=== PATIENT | male | born 1985 | race Two or more races ===

== ENCOUNTER 2021-04-10 19:49 | Inpatient (IN) | payer SELFPAY ==
[~2021-04-10] VITALS: Ht 182.9 cm; Wt 108.1 kg
[2021-04-10] MEDS ORDERED: FAMOTIDINE 20 MG/2 ML VIAL IVP ONE (20:45)
[2021-04-10] MEDS ORDERED: IV NORMAL SALINE 1000ML BAG 1,000 ML IV ONE ×2 (20:45→22:00)
[2021-04-10] MEDS ORDERED: METOCLOPRAMIDE HCL 10 MG/2 ML VIAL. IVP ONE (20:45)
[2021-04-10 20:47] LABS: CALCIUM 9.1 mg/dL (8.5-10.1); CREATININE 1.1 mg/dL (0.7-1.3); GFR 76.2
[2021-04-10 20:52] LABS: BASO % 0 % (0-3); EOS # 0.1 x10^3/uL (0.0-0.7); EOS % 1 % (0-3); HEMATOCRIT 44.3 % (39.0-53.0); HEMOGLOBIN 15.6 g/dL (13.0-17.5); LYMPH # 1.6 x10^3/uL (1.0-4.8); LYMPH % 21 % (24-48); MEAN CORPUSCULAR HEMOGLOBIN 33 pg (25-35); MEAN CORPUSCULAR HGB CONC 35 g/dL (31-37); MEAN CORPUSCULAR VOLUME 94 fL (79-100); MONO # 0.5 x10^3/uL (0.0-1.1); MONO % 6 % (0-9); NEUT # 5.5 x10^3/uL (1.8-7.7); NEUT % 71 % (31-73); PLATELET COUNT 187 x10^3/uL (140-400); RED CELL DISTRIBUTION WIDTH 13.6 % (11.5-14.5); WHITE BLOOD COUNT 7.7 x10^3/uL (4.0-11.0)
[2021-04-10 20:53] LABS: ALBUMIN 4.4 g/dL (3.4-5.0); ALBUMIN/GLOBULIN RATIO 1.4 (1.0-1.7); TOTAL BILIRUBIN 0.4 mg/dL (0.2-1.0); TOTAL PROTEIN 7.6 g/dL (6.4-8.2)
[2021-04-10 21:01] LABS: CREATINE KINASE 238 U/L (39-308); LACTATE DEHYDROGENASE 223 U/L (85-227); LIPASE 58 U/L (73-393)
--- NOTE | 2021-04-10 21:04 | RAD ---
EXAM: AP View of the chest DATE: 04/10/2021 8:54 PM INDICATION: Reason: n/v / Spl. Instructions: / History: COMPARISON: No Prior FINDINGS: The heart is not enlarged. Mediastinal and hilar contours are normal. Patchy opacities right lung base likely atelectasis or developing consolidation. No pleural effusion or pneumothorax. IMPRESSION: Patchy opacities right lung base favor developing consolidation although atelectasis could also have this appearance. Imaging follow-up to resolution is recommended. Electronically signed by: Fermin Arriola MD (04/10/2021 9:02 PM) [facility]
[2021-04-10] MEDS ORDERED: IOHEXOL 300 MG/ML 100ML VIAL. IV ONE (21:15)
[2021-04-10] MEDS ORDERED: CONTRAST GIVEN. MC PRN (21:15)
--- NOTE | 2021-04-10 21:31 | EKG ---
[facility] [address] [place] [address] Test Date: 2021-04-10 Test Time: 21:24:27 Pat Name: KALEIGH RENO Department: Room: Gender: M Clinical Product Manager: : 1985 Requested By: WILD WANG Order Number: [id number] Reading MD: Measurements Intervals [place] Rate: 75 P: 27 NE: 150 QRS: 36 QRSD: 82 T: 14 QT: 352 QTc: 396 Interpretive Statements SINUS ARRHYTHMIA OTHERWISE NORMAL ECG RI6.02 No previous ECG available for comparison
--- NOTE | 2021-04-10 21:43 | RAD ---
Exam: CT of abdomen and pelvis with contrast INDICATION: Diffuse abdominal pain, nausea and vomiting TECHNIQUE: Sequential axial images through the abdomen and pelvis obtained following the administrati on of 70 mL of Omni 350 IV contrast. Sagittal and coronal reformatted images were reconstructed from the axial data and reviewed. Exposure: One or more of the following in the visualized dose reduction techniques were utilized for this examination: 1. Automated exposure control 2. Adjustment of the MA and/or KV according to patient size 3. Use of iterative of reconstructive technique Comparisons: None FINDINGS: Heart size is normal. No pericardial effusion. Strandy opacities at dependent portion lungs. No pleur al effusion. Mild diffuse hepatic steatosis. Spleen, pancreas, gallbladder and adrenals are unremarkable. No perinephric inflammation or hydronephrosis. No renal or ureteral calculi are identified. Bladder is partially distended and appears thin-walled. Prostate is not enlarged. The appendix is dilated with appendicolith at the base of the appendix. Remainder of the large and sm all bowel are unremarkable. No free intra-abdominal air or fluid. No obstruction. Abdominal aorta has a normal course caliber. Abdominal vasculature is patent. No enlarged intra-abdominal lymph nodes are identified. No suspicious osseous lesions or acute fractures. IMPRESSION: Findings of acute appendicitis. No evidence for perforation or adjacent abscess. Electronically signed by: Pili Heller MD (04/10/2021 9:40 PM) [facility]
[2021-04-10] MEDS ORDERED: cefTRIAXone IV Push 1 GM VIAL. IVP ONE (22:00)
[2021-04-10] MEDS ORDERED: DOXYCYCLINE HYCLATE 100 MG in IV DEXTROSE 5% 100ML 100 ML IV ONE (22:00)
--- NOTE | 2021-04-10 22:05 | PHYS DOC ---
Past Medical History Past Medical History: No Pertinent History Past Surgical History: No Surgical History Smoking Status: Current Every Day Smoker Alcohol Use: None General Adult EDM: Chief Complaint: ABDOMINAL PAIN HPI: HPI: 35-year-old male with no significant past medical history presents the ED with complaints of diffuse abdominal pain that started around noon today while patient was endorsed pain in the home, reports associated chills, nausea and nbnb vomiting. States he normally drinks around 6 beers a day but has no history of alcohol withdrawal. Denies any past surgical history. *Patient is Belgian-speaking and armored vehicle officer services offered. Patient requests [id number] to translate. Review of Systems: Review of Systems: Constitutional: denies fever, Eyes: Denies change in visual acuity. [] HENT: Denies nasal congestion or sore throat. [] Respiratory: Denies cough or shortness of breath. [] Cardiovascular: Denies chest pain or edema. [] GI: Denies bloody stools or diarrhea. [] : Denies dysuria or gu pain/scrotal and penile pain Musculoskeletal: Denies back pain or joint pain. [] Integument: Denies rash or lesions Neurologic: Denies headache, focal weakness or sensory changes. [] Endocrine: Denies polyuria or polydipsia. [] Lymphatic: Denies swollen glands. [] Psychiatric: Denies depression or anxiety. [] Heart Score: C/O Chest Pain: No Risk Factors: Risk Factors: DM, Current or recent (<one month) smoker, HTN, HLP, family history of CAD, obesity. Risk Scores: Score 0 - 3: 2.5% MACE over next 6 weeks - Discharge Home Score 4 - 6: 20.3% MACE over next 6 weeks - Admit for Clinical Observation Score 7 - 10: 72.7% MACE over next 6 weeks - Early Invasive Strategies Current Medications: Current Medications Medications (Trade) Dose Ordered Sig/Radha Start Time Stop Time Status Last Admin Dose Admin Famotidine (Pepcid Vial) 20 mg 1X ONCE 04/10/21 20:45 04/10/21 21:10 DC 04/10/21 21:28 20 MG Info (CONTRAST GIVEN -- Rx MONITORING) 1 each PRN DAILY PRN 04/10/21 21:15 04/12/21 21:14 Iohexol (Omnipaque 300 Mg/ml) 75 ml 1X ONCE 04/10/21 21:15 04/10/21 21:16 DC 04/10/21 21:18 75 ML Metoclopramide HCl (Reglan Vial) 10 mg 1X ONCE 04/10/21 20:45 04/10/21 21:10 DC 04/10/21 21:28 10 MG Sodium Chloride 1,000 ml @ 1,000 mls/hr 1X ONCE 04/10/21 20:45 04/10/21 21:44 DC 04/10/21 21:28 1,000 MLS/HR Allergies: Allergies: Allergies Coded Allergies Type Severity Reaction Last Updated Verified No Known Drug Allergies 04/10/21 No Physical Exam: PE: Constitutional: Well developed, well nourished, no acute distress, non-toxic appearance. HENT: Normocephalic, atraumatic, Eyes: EOMI, conjunctiva normal, no discharge. Neck: Normal range of motion, supple, Cardiovascular: S1/2 present, regular rhythm Lungs & Thorax: Speaking in full sentences, bilateral equal chest rise, no t achypnea or increased work of breathing Abdomen: soft, very warm to the touch, reports diffuse tenderness but is more localized in lower quadrants Skin: Warm, dry, no erythema, no rash. [] Back: No tenderness, no CVA tenderness. [] Extremities: No tenderness, no cyanosis, Neurologic: Alert and oriented X 3, no focal deficits noted. [] Psychologic: Affect normal, judgement normal, mood normal. [] Current Patient Data: Labs: Laboratory Tests Test 04/10/21 20:28 White Blood Count 7.7 x10^3/uL (4.0-11.0) Red Blood Count 4.70 x10^6/uL (4.30-5.70) Hemoglobin 15.6 g/dL (13.0-17.5) Hematocrit 44.3 % (39.0-53.0) Mean Corpuscular Volume 94 fL (79-100) Mean Corpuscular Hemoglobin 33 pg (25-35) Mean Corpuscular Hemoglobin Concent 35 g/dL (31-37) Red Cell Distribution Width 13.6 % (11.5-14.5) Platelet Count 187 x10^3/uL (140-400) Neutrophils (%) (Auto) 71 % (31-73) Lymphocytes (%) (Auto) 21 % (24-48) L Monocytes (%) (Auto) 6 % (0-9) Eosinophils (%) (Auto) 1 % (0-3) Basophils (%) (Auto) 0 % (0-3) Neutrophils # (Auto) 5.5 x10^3/uL (1.8-7.7) Lymphocytes # (Auto) 1.6 x10^3/uL (1.0-4.8) Monocytes # (Auto) 0.5 x10^3/uL (0.0-1.1) Eosinophils # (Auto) 0.1 x10^3/uL (0.0-0.7) Basophils # (Auto) 0.0 x10^3/uL (0.0-0.2) Sodium Level 141 mmol/L (136-145) Potassium Level 4.0 mmol/L (3.5-5.1) Chloride Level 105 mmol/L (98-107) Carbon Dioxide Level 28 mmol/L (21-32) Anion Gap 8 (6-14) Blood Urea Nitrogen 14 mg/dL (8-26) Creatinine 1.1 mg/dL (0.7-1.3) Estimated GFR (Cockcroft-Gault) 76.2 BUN/Creatinine Ratio 13 (6-20) Glucose Level 114 mg/dL (70-99) H Calcium Level 9.1 mg/dL (8.5-10.1) Total Bilirubin 0.4 mg/dL (0.2-1.0) Aspartate Amino Transferase (AST) 23 U/L (15-37) Alanine Aminotransferase (ALT) 53 U/L (16-63) Alkaline Phosphatase 61 U/L (46-116) Lactate Dehydrogenase 223 U/L (85-227) Creatine Kinase 238 U/L (39-308) Troponin I Quantitative < 0.017 ng/mL (0.000-0.055) Total Protein 7.6 g/dL (6.4-8.2) Albumin 4.4 g/dL (3.4-5.0) Albumin/Globulin Ratio 1.4 (1.0-1.7) Lipase 58 U/L (73-393) L Laboratory Tests 04/10/21 20:28 Laboratory Tests 04/10/21 20:28 Vital Signs: Vital Signs Date Time Temp Pulse Resp B/P (MAP) Pulse Ox O2 Delivery O2 Flow Rate FiO2 04/10/21 20:15 98.5 89 18 151/79 (103) 99 Room Air 98.5 EKG: EKG: Sinus rhythm at 75 bpm, no axis deviation, normal intervals, T wave inversion lead III, no ST depressions or ST depressions, no active chest pain Radiology/Procedures: Radiology/Procedures: IMAGING REPORT Signed PATIENT: KALIEGH RENOACCOUNT: [id number] : 1985 LOCATION: ER AGE: 35 SEX: M EXAM STATUS: REG ER ORD. PHYSICIAN: WILD WANG DO REASON: diffuse abd pain, n/v, r/o appey PROCEDURE: CT ABD PELV W/ IV CONTRST ONLY Exam: CT of abdomen and pelvis with contrast INDICATION: Diffuse abdominal pain, nausea and vomiting TECHNIQUE: Sequential axial images through the abdomen and pelvis obtained following the administration of 70 mL of Omni 350 IV contrast. Sagittal and coronal reformatted images were reconstructed from the axial data and reviewed. Exposure: One or more of the following in the visualized dose reduction techniques were utilized for this examination: 1. Automated exposure control 2. Adjustment of the MA and/or KV according to patient size 3. Use of iterative of reconstructive technique Comparisons: None FINDINGS: Heart size is normal. No pericardial effusion. Strandy opacities at dependent portion lungs. No pleural effusion. Mild diffuse hepatic steatosis. Spleen, pancreas, gallbladder and adrenals are unremarkable. No perinephric inflammation or hydronephrosis. No renal or ureteral calculi are identified. Bladder is partially distended and appears thin-walled. Prostate is not enlarged. The appendix is dilated with appendicolith at the base of the appendix. Remainder of the large and small bowel are unremarkable. No free intra-abdominal air or fluid. No obstruction. Abdominal aorta has a normal course caliber. Abdominal vasculature is patent. No enlarged intra-abdominal lymph nodes are identified. No suspicious osseous lesions or acute fractures. IMPRESSION: Findings of acute appendicitis. No evidence for perforation or adjacent abscess. Electronically signed by: Pili Velázquez MD (04/10/2021 9:40 PM) [facility] DICTATED and SIGNED BY: PILI VELÁZQUEZ MD DATE: 04/10/212264WXM4 0 IMAGING REPORT Signed PATIENT: KALEIGH RENOACCOUNT: [id number] : 1985 LOCATION: ER AGE: 35 SEX: M EXAM STATUS: REG ER ORD. PHYSICIAN: WILD WANG DO REASON: n/v PROCEDURE: CHEST AP ONLY EXAM: AP View of the chest DATE: 04/10/2021 8:54 PM INDICATION: Reason: n/v / Spl. Instructions: / History: COMPARISON: No Prior FINDINGS: The heart is not enlarged. Mediastinal and hilar contours are normal. Patchy opacities right lung base likely atelectasis or developing consolidation. No pleural effusion or pneumothorax. IMPRESSION: Patchy opacities right lung base favor developing consolidation although atelectasis could also have this appearance. Imaging follow-up to resolution is recommended. Electronically signed by: Fermin Jones MD (04/10/2021 9:02 PM) [facility] DICTATED and SIGNED BY: FERMIN JONES MD DATE: 04/10/211216GPI0 0 Course & Med Decision Making: Course & Med Decision Making Pertinent Labs and Imaging studies reviewed. (See chart for details) Concern for acute appendicitis in the setting of right lower lobe, community- acquired pneumonia. Start on antibiotics, IV fluids and n.p.o. Will admit for further medical management. I spoke to general surgery Dr. Eddy. Patient stable at time of admission and agrees with this plan. I have spoken with the patient and/or caregivers. I have explained the patient's condition, diagnosis and treatment plan based on the information available to me at this time. I have answered the patient's and/or caregivers questions and answered any concerns. The patient and/or caregivers have as good an understanding of the patient's diagnosis, condition and treatment plan as can be expected at this point. The patient has been stabilized within the c apability of the emergency department. The patient will be transported for further care and management or will be moved to an observation or inpatient service. I have communicated with the staff or medical practitioner taking over this patient's care. Surya Disclaimer: Surya Disclaimer: This electronic medical record was generated, in whole or in part, using a voice recognition dictation system. Departure Departure Impression: Primary Impression: Appendicitis, acute Additional Impressions: CAP (community acquired pneumonia) Person under investigation for COVID-19 Disposition: ADMITTED INPATIENT Admitting Physician: SEAN (Dr. Badillo) Condition: STABLE Referrals: NO PCP (PCP) WILD WANG DO Apr 10, 2021 22:05
--- NOTE | 2021-04-10 22:51 | PDOC1 ---
History and Physical Date of Admission Date of Admission DATE: 04/10/21 TIME: 22:50 Identification/Chief Complaint Chief Complaint Abdominal pain Source Source: Caregiver, Chart review, Patient History of Present Illness History of Present Illness Mr Pena is a 35yo male with no significant past medical history who presents the ED with complaints of diffuse abdominal pain that started at noon today while patient was eating with family. He had associated episodes of nausea emesis that was nonbloody and nonbilious. He has some chills but no fever. His pain is periumbilical does not radiate. He is loss of appetite. He does smoke less than a pack a day drinks less than 6 total beers a week. He is not using any illicit drugs. He has never been hospitalized and has had no previous surgeries. He is a [place] citizen visiting from [facility] and he is accompanied by his [id number] who is bilingual. Dealer Account Manager services were utilized for the history as patient does not speak or understand Sinhala. Chest radiograph with patchy opacity at right lung base. CT abdomen pelvis with concerning findings for acute appendicitis without perforation or abscess EKG sinus rhythm rate of 75 bpm normal axis and intervals Labs revealed WBC 7.7, Hb 15.6, platelets 187, troponin 0, NA 141, K4, BUN 14, CR 1.1, glucose 114, LFTs within normal laboratory limits. Admitted for further care Past Medical History Cardiovascular: No pertinent hx Past Surgical History Past Surgical History: No pertinent history Family History Family History: Diabetes Social History Smoke: 1 pack per day ALCOHOL: social Drugs: None Current Problem List Problem List Problems Medical Problems: (1) Appendicitis, acute Status: Acute (2) CAP (community acquired pneumonia) Status: Acute (3) Person under investigation for COVID-19 Status: Acute Current Medications Current Medications Current Medications Sodium Chloride 1,000 ml @ 1,000 mls/hr 1X ONCE IV Last administered on 04/10/21at 21:28; Start 04/10/21 at 20:45; Stop 04/10/21 at 21:44; Status DC Metoclopramide HCl (Reglan Vial) 10 mg 1X ONCE IVP Last administered on 04/10/21at 21:28; Start 04/10/21 at 20:45; Stop 04/10/21 at 21:10; Status DC Famotidine (Pepcid Vial) 20 mg 1X ONCE IVP Last administered on 04/10/21at 21:28; Start 04/10/21 at 20:45; Stop 04/10/21 at 21:10; Status DC Iohexol (Omnipaque 300 Mg/ml) 75 ml 1X ONCE IV Last administered on 04/10/21at 21:18; Start 04/10/21 at 21:15; Stop 04/10/21 at 21:16; Status DC Info (CONTRAST GIVEN -- Rx MONITORING) 1 each PRN DAILY PRN MC SEE COMMENTS; Start 04/10/21 at 21:15; Stop 04/12/21 at 21:14 Doxycycline Hyclate 100 mg/ Dextrose 100 ml @ 50 mls/hr 1X ONCE IV Last administered on 04/10/21at 22:24; Start 04/10/21 at 22:00; Stop 04/10/21 at 23:59 Ceftriaxone Sodium (Rocephin) 1 gm 1X ONCE IVP Last administered on 04/10/21at 22:25; Start 04/10/21 at 22:00; Stop 04/10/21 at 22:01; Status DC Sodium Chloride 1,000 ml @ 100 mls/hr 1X ONCE IV Last administered on 04/10/21at 22:24; Start 04/10/21 at 22:00; Stop 04/11/21 at 07:59 Allergies Allergies: Coded Allergies: No Known Drug Allergies (Unverified , 04/10/21) ROS General: YES: Chills, Appetite; No: Night Sweats, Fatigue, Malaise, Other PSYCHOLOGICAL ROS: No: Anxiety, Behavioral Disorder, Concentration difficultie, Decreased libido, Depression, Disorientation, Hallucinations, Hostility, Irritablity, Memory difficulties, Mood Swings, Obsessive thoughts, Physical abuse, Sexual abuse, Sleep disturbances, Suicidal ideation, Other Eyes: No Blurry vision, No Decreased vision, No Double vision, No Dry eyes, No Excessive tearing, No Eye Pain, No Itchy Eyes, No Loss of vision, No Photophobia, No Scotomata, No Uses contacts, No Uses glasses, No Other HEENT: No: Heacaches, Visual Changes, Hearing change, Nasal congestion, Nasal discharge, Oral lesions, Sinus pain, Sore Throat, Epistaxis, Sneezing, Snoring, Tinnitus, Vertigo, Vocal changes, Other ALLERGY AND IMMUNOLOGY: No: Hives, Insect Bite Sensitivity, Itchy/Watery Eyes, Nasal Congestion, Post Nasal Drip, Seasonal Allergies, Other Hematological and Lymphatic: No: Bleeding Problems, Blood Clots, Blood Transfusions, Brusing, Night Sweats, Pallor, Swollen Lymph Nodes, Other ENDOCRINE: No: Breast Changes, Galactorrhea, Hair Pattern Changes, Hot Flashes, Malaise/lethargy, Mood Swings, Palpitations, Polydipsia/polyuria, Skin Changes, Temperature Intolerance, Unexpected Weight Changes, Other Breast: No New/Changing Breast Lumps, No Nipple changes, No Nipple discharge, No Other Respiratory: No: Cough, Hemoptysis, Orthopnea, Pleuritic Pain, Shortness of breath, SOB with excertion, Sputum Changes, Stridor, Tachypnea, Wheezing, Other Cardiovascular: No Chest Pain, No Palpitations, No Orthopnea, No Paroxysmal Noc. Dyspnea, No Edema, No Lt Headedness, No Other Gastrointestinal: Yes Nausea, Yes Vomiting, Yes Abdominal Pain; No Diarrhea, No Constipation, No Melena, No Hematochezia, No Other Genitourinary: No Dysuria, No Frequency, No Incontinence, No Hematuria, No Retention, No Discharge, No Urgency, No Pain, No Flank Pain, No Other, No , No , No , No , No , No , No Musculoskeletal: No Gait Disturbance, No Joint Pain, No Joint Stiffness, No Joint Swelling, No Muscle Pain, No Muscular Weakness, No Pain In:, No Swelling In:, No Other Neurological: No Behavorial Changes, No Bowel/Bladder ControlChng, No Confusi on, No Dizziness, No Gait Disturbance, No Headaches, No Impaired Coord/balance, No Memory Loss, No Numbness/Tingling, No Seizures, No Speech Problems, No Tremors, No Visual Changes, No Weakness, No Other Skin: No Dry Skin, No Eczema, No Hair Changes, No Lumps, No Mole Changes, No Mottling, No Nail Changes, No Pruritus, No Rash, No Skin Lesion Changes, No Other, No Acne Physical Exam General: Alert, Oriented X3, Cooperative, moderate distress HEENT: Atraumatic, PERRLA, EOMI, Mucous membr. moist/pink Lungs: Clear to auscultation, Normal air movement Heart: S1S2, RRR, no thrills, no rubs, no gallops, no murmurs Abdomen: Normal bowel sounds, Soft, No hepatosplenomegaly, No masses, Other (Diffuse and RLQ, periumbilical tenderness) Rectal Exam: not examined Extremities: No clubbing, No cyanosis, No edema, Normal pulses, No tendern ess/swelling Skin: No rashes, No breakdown, No significant lesion Neuro: Normal gait, Normal speech, Strength at 5/5 X4 ext, Normal tone, Sensation intact, Cranial nerves 3-12 NL, Reflexes 2+ Psych/Mental Status: Mental status NL, Mood NL Vitals Vitals Vital Signs Date Time Temp Pulse Resp B/P (MAP) Pulse Ox O2 Delivery O2 Flow Rate FiO2 04/10/21 20:15 98.5 89 18 151/79 (103) 99 Room Air 98.5 Labs Labs Laboratory Tests Test 04/10/21 20:28 White Blood Count 7.7 x10^3/uL (4.0-11.0) Red Blood Count 4.70 x10^6/uL (4.30-5.70) Hemoglobin 15.6 g/dL (13.0-17.5) Hematocrit 44.3 % (39.0-53.0) Mean Corpuscular Volume 94 fL (79-100) Mean Corpuscular Hemoglobin 33 pg (25-35) Mean Corpuscular Hemoglobin Concent 35 g/dL (31-37) Red Cell Distribution Width 13.6 % (11.5-14.5) Platelet Count 187 x10^3/uL (140-400) Neutrophils (%) (Auto) 71 % (31-73) Lymphocytes (%) (Auto) 21 % (24-48) Monocytes (%) (Auto) 6 % (0-9) Eosinophils (%) (Auto) 1 % (0-3) Basophils (%) (Auto) 0 % (0-3) Neutrophils # (Auto) 5.5 x10^3/uL (1.8-7.7) Lymphocytes # (Auto) 1.6 x10^3/uL (1.0-4.8) Monocytes # (Auto) 0.5 x10^3/uL (0.0-1.1) Eosinophils # (Auto) 0.1 x10^3/uL (0.0-0.7) Basophils # (Auto) 0.0 x10^3/uL (0.0-0.2) Sodium Level 141 mmol/L (136-145) Potassium Level 4.0 mmol/L (3.5-5.1) Chloride Level 105 mmol/L (98-107) Carbon Dioxide Level 28 mmol/L (21-32) Anion Gap 8 (6-14) Blood Urea Nitrogen 14 mg/dL (8-26) Creatinine 1.1 mg/dL (0.7-1.3) Estimated GFR (Cockcroft-Gault) 76.2 BUN/Creatinine Ratio 13 (6-20) Glucose Level 114 mg/dL (70-99) Calcium Level 9.1 mg/dL (8.5-10.1) Total Bilirubin 0.4 mg/dL (0.2-1.0) Aspartate Amino Transf (AST/SGOT) 23 U/L (15-37) Alanine Aminotransferase (ALT/SGPT) 53 U/L (16-63) Alkaline Phosphatase 61 U/L (46-116) Lactate Dehydrogenase 223 U/L (85-227) Creatine Kinase 238 U/L (39-308) Troponin I Quantitative < 0.017 ng/mL (0.000-0.055) Total Protein 7.6 g/dL (6.4-8.2) Albumin 4.4 g/dL (3.4-5.0) Albumin/Globulin Ratio 1.4 (1.0-1.7) Lipase 58 U/L (73-393) Laboratory Tests Test 04/10/21 20:28 White Blood Count 7.7 x10^3/uL (4.0-11.0) Red Blood Count 4.70 x10^6/uL (4.30-5.70) Hemoglobin 15.6 g/dL (13.0-17.5) Hematocrit 44.3 % (39.0-53.0) Mean Corpuscular Volume 94 fL (79-100) Mean Corpuscular Hemoglobin 33 pg (25-35) Mean Corpuscular Hemoglobin Concent 35 g/dL (31-37) Red Cell Distribution Width 13.6 % (11.5-14.5) Platelet Count 187 x10^3/uL (140-400) Neutrophils (%) (Auto) 71 % (31-73) Lymphocytes (%) (Auto) 21 % (24-48) Monocytes (%) (Auto) 6 % (0-9) Eosinophils (%) (Auto) 1 % (0-3) Basophils (%) (Auto) 0 % (0-3) Neutrophils # (Auto) 5.5 x10^3/uL (1.8-7.7) Lymphocytes # (Auto) 1.6 x10^3/uL (1.0-4.8) Monocytes # (Auto) 0.5 x10^3/uL (0.0-1.1) Eosinophils # (Auto) 0.1 x10^3/uL (0.0-0.7) Basophils # (Auto) 0.0 x10^3/uL (0.0-0.2) Sodium Level 141 mmol/L (136-145) Potassium Level 4.0 mmol/L (3.5-5.1) Chloride Level 105 mmol/L (98-107) Carbon Dioxide Level 28 mmol/L (21-32) Anion Gap 8 (6-14) Blood Urea Nitrogen 14 mg/dL (8-26) Creatinine 1.1 mg/dL (0.7-1.3) Estimated GFR (Cockcroft-Gault) 76.2 BUN/Creatinine Ratio 13 (6-20) Glucose Level 114 mg/dL (70-99) Calcium Level 9.1 mg/dL (8.5-10.1) Total Bilirubin 0.4 mg/dL (0.2-1.0) Aspartate Amino Transf (AST/SGOT) 23 U/L (15-37) Alanine Aminotransferase (ALT/SGPT) 53 U/L (16-63) Alkaline Phosphatase 61 U/L (46-116) Lactate Dehydrogenase 223 U/L (85-227) Creatine Kinase 238 U/L (39-308) Troponin I Quantitative < 0.017 ng/mL (0.000-0.055) Total Protein 7.6 g/dL (6.4-8.2) Albumin 4.4 g/dL (3.4-5.0) Albumin/Globulin Ratio 1.4 (1.0-1.7) Lipase 58 U/L (73-393) Images Images Chest radiograph: The heart is not enlarged. Mediastinal and hilar contours are normal. Patchy opacities right lung base likely atelectasis or developing consolidation. No pleural effusion or pneumothorax. IMPRESSION: Patchy opacities right lung base favor developing consolidation although atelectasis could also have this appearance. Imaging follow-up to resolution is recommended. CT Abdomen pelvis with IV contrast: Heart size is normal. No pericardial effusion. Strandy opacities at dependent portion lungs. No pleural effusion. Mild diffuse hepatic steatosis. Spleen, pancreas, gallbladder and adrenals are unremarkable. No perinephric inflammation or hydronephrosis. No renal or ureteral calculi are identified. Bladder is partially distended and appears thin-walled. Prostate is not enlarged. The appendix is dilated with appendicolith at the base of the appendix. Remainder of the large and small bowel are unremarkable. No free intra-abdominal air or fluid. No obstruction. Abdominal aorta has a normal course caliber. Abdominal vasculature is patent. No enlarged intra-abdominal lymph nodes are identified. No suspicious osseous lesions or acute fractures. IMPRESSION: Findings of acute appendicitis. No evidence for perforation or adjacent abscess. VTE Prophylaxis Ordered VTE Prophylaxis Devices: No VTE Pharmacological Prophylaxi: No Assessment/Plan Assessment/Plan A/P: Acute appendicitis -given empiric antibiotics and fluids. General surgery: Consulted. NPO. No further testing prior to planned surgery Obesity -counseled on lifestyle modification Smoker -counseled on cessation FEN - NPO PPX - pepcid. Low dvt risk, ambulatory FULL CODE DIspo - inpatient for acute appendicitis Justifications for Admission Other Justification TIMOTHY ACLAZAR MD Apr 10, 2021 22:50
[2021-04-10] MEDS ORDERED: ACETAMINOPHEN 325 MG TABLET. PO PRN (23:45)
[2021-04-11] VITALS (9 sets, daily range): BP systolic 116–139; BP diastolic 59–82
[2021-04-11] MEDS: fentaNYL PF VIAL 100 MCG/2 ML VIAL IVP PRN ×9 (00:56→14:59)
[2021-04-11] MEDS: ONDANSETRON PF 4 MG/2 ML VIAL. IVP PRN ×2 (01:18→07:00)
[2021-04-11] MEDS ORDERED: no home meds (02:40)
[2021-04-11] MEDS: PIPERACILLIN/TAZOBACTAM 3.375 GM in IV NORMAL SALINE 50ML 50 ML IV SCH ×4 (06:00→23:52)
--- NOTE | 2021-04-11 10:09 | NUR ---
SW following. Discussed with RN, pt from home, room air, NPO, COVID-19 negative. GI following. Pt having surgery today. Med Assist following for self pay status. SW will continue to follow.
[2021-04-11] MEDS ORDERED: LIDOCAINE 2% PF 5 ML VIAL. ONE (10:26)
[2021-04-11] MEDS ORDERED: fentaNYL PF VIAL 100 MCG/2 ML VIAL ONE ×3 (10:27→12:56)
[2021-04-11] MEDS ORDERED: PROPOFOL 10 MG/ML (20ML) VIAL. IV ONE ×2 (10:28→11:46)
[2021-04-11] MEDS ORDERED: IV RINGERS,LACTATED 1000ML 1,000 ML IV SCH (10:30)
[2021-04-11] MEDS ORDERED: MORPHINE SULFATE 2 MG/ML VIAL. IVP PRN (10:30)
[2021-04-11] MEDS ORDERED: HYDROmorphone 2 MG/ML VIAL IVP PRN (10:30)
[2021-04-11] MEDS ORDERED: fentaNYL PF VIAL 100 MCG/2 ML VIAL IVP PRN (10:30)
[2021-04-11] MEDS ORDERED: PROCHLORPERAZINE 10 MG/2 ML VIAL. IVP PRN (10:30)
[2021-04-11] MEDS ORDERED: ROCURONIUM 50 MG/5 ML VIAL. ONE (10:34)
[2021-04-11] MEDS ORDERED: SEVOFLURANE 61 TO 120 MINUTES. IH ONE (10:34)
--- NOTE | 2021-04-11 10:50 | PDOC2 ---
CONSULT Date of Consult Date of Consult DATE: 04/11/21 TIME: 10:47 Reason for Consult Reason for Consult: Abdominal pain Referring Physician Referring Physician: Justino Identification/Chief Complaint Chief Complaint Abdominal pain Source Source: Caregiver, Chart review, Patient History of Present Illness Reason for Visit: 35-year-old male with 24-hour history of right lower quadrant abdominal pain one episode of emesis came to the emergency department further evaluation a CT scan of his abdomen shows signs consistent with acute appendicitis without abscess or rupture Past Medical History Cardiovascular: No pertinent hx Pulmonary: No pertinent hx GI: No pertinent hx Heme/Onc: No pertinent hx Hepatobiliary: No pertinent hx Psych: No pertinent hx Rheumatologic: No pertinent hx ENT: No pertinent hx Renal/: No pertinent hx Endocrine: No pertinent hx Dermatology: No pertinent hx Past Surgical History Past Surgical History: No pertinent history Family History Family History: Diabetes Social History 1 pack per day ALCOHOL: social Drugs: None Current Problem List Problem List Problems Medical Problems: (1) Appendicitis, acute Status: Acute (2) CAP (community acquired pneumonia) Status: Acute (3) Person under investigation for COVID-19 Status: Acute Current Medications Current Medications Current Medications Sodium Chloride 1,000 ml @ 1,000 mls/hr 1X ONCE IV Last administered on 04/10/21at 21:28; Start 04/10/21 at 20:45; Stop 04/10/21 at 21:44; Status DC Metoclopramide HCl (Reglan Vial) 10 mg 1X ONCE IVP Last administered on 04/10/21at 21:28; Start 04/10/21 at 20:45; Stop 04/10/21 at 21:10; Status DC Famotidine (Pepcid Vial) 20 mg 1X ONCE IVP Last administered on 04/10/21at 21:28; Start 04/10/21 at 20:45; Stop 04/10/21 at 21:10; Status DC Iohexol (Omnipaque 300 Mg/ml) 75 ml 1X ONCE IV Last administered on 04/10/21at 21:18; Start 04/10/21 at 21:15; Stop 04/10/21 at 21:16; Status DC Info (CONTRAST GIVEN -- Rx MONITORING) 1 each PRN DAILY PRN MC SEE COMMENTS; Start 04/10/21 at 21:15; Stop 04/12/21 at 21:14 Doxycycline Hyclate 100 mg/ Dextrose 100 ml @ 50 mls/hr 1X ONCE IV Last administered on 04/10/21at 22:24; Start 04/10/21 at 22:00; Stop 04/10/21 at 23:59; Status DC Ceftriaxone Sodium (Rocephin) 1 gm 1X ONCE IVP Last administered on 04/10/21at 22:25; Start 04/10/21 at 22:00; Stop 04/10/21 at 22:01; Status DC Sodium Chloride 1,000 ml @ 100 mls/hr 1X ONCE IV Last administered on 04/10/21at 22:24; Start 04/10/21 at 22:00; Stop 04/11/21 at 07:59; Status DC Piperacillin Sod/ Tazobactam Sod 3.375 gm/Sodium Chloride 50 ml @ 100 mls/hr Q6HRS IV Last administered on 04/11/21at 06:00; Start 04/11/21 at 06:00 Fentanyl Citrate (Fentanyl 2ml Vial) 25 mcg PRN Q3HRS PRN IVP SEVERE PAIN 7-10 Last administered on 04/11/21at 09:54; Start 04/10/21 at 23:45 Ondansetron HCl (Zofran) 4 mg PRN Q4HRS PRN IVP NAUSEA/VOMITING Last administered on 04/11/21at 07:00; Start 04/10/21 at 23:45 Acetaminophen (Tylenol) 650 mg PRN Q6HRS PRN PO MILD PAIN / TEMP > 100.3'F; Start 04/10/21 at 23:45 Lorazepam (Ativan Inj) 0.5 mg PRN Q4HRS PRN IVP ANXIETY / AGITATION; Start 04/11/21 at 00:15 Lidocaine HCl (Lidocaine Pf 2% Vial) 5 ml STK-MED ONCE .ROUTE ; Start 04/11/21 at 10:26; Stop 04/11/21 at 10:26; Status DC Fentanyl Citrate (Fentanyl 2ml Vial) 25 mcg PRN Q5MIN PRN IVP MILD PAIN 1-3; Start 04/11/21 at 10:30; Stop 04/11/21 at 19:00 Fentanyl Citrate (Fentanyl 2ml Vial) 50 mcg PRN Q5MIN PRN IVP MODERATE PAIN 4- 6; Start 04/11/21 at 10:30; Stop 04/11/21 at 19:00 Morphine Sulfate (Morphine Sulfate) 1 mg PRN Q10MIN PRN IVP SEVERE PAIN 7-10; Start 04/11/21 at 10:30; Stop 04/11/21 at 19:00 Ringer's Solution 1,000 ml @ 30 mls/hr Q24H IV ; Start 04/11/21 at 10:30; Stop 04/11/21 at 22:29 Hydromorphone HCl (Dilaudid) 0.5 mg PRN Q10MIN PRN IVP SEVERE PAIN 7-10, 2nd CHOICE; Start 04/11/21 at 10:30; Stop 04/11/21 at 19:00 Prochlorperazine Edisylate (Compazine) 5 mg PACU PRN PRN IVP NAUSEA, MRX1; Start 04/11/21 at 10:30; Stop 04/11/21 at 19:00 Fentanyl Citrate (Fentanyl 2ml Vial) 100 mcg STK-MED ONCE .ROUTE ; Start 04/11/21 at 10:27; Stop 04/11/21 at 10:27; Status DC Propofol (Diprivan) 200 mg STK-MED ONCE IV ; Start 04/11/21 at 10:28; Stop 04/11/21 at 10:28; Status DC Fentanyl Citrate (Fentanyl 2ml Vial) 50 mcg PREOP PRN PRN IVP pain Last administered on 04/11/21at 10:45; Start 04/11/21 at 10:30; Stop 04/11/21 at 12:00 Sevoflurane (Ultane) 60 ml STK-MED ONCE IH ; Start 04/11/21 at 10:34; Stop 04/11/21 at 10:34; Status DC Rocuronium [place] (Zemuron) 50 mg STK-MED ONCE .ROUTE ; Start 04/11/21 at 10:34; Stop 04/11/21 at 10:34; Status DC Fentanyl Citrate (Fentanyl 2ml Vial) 100 mcg STK-MED ONCE .ROUTE ; Start 04/11/21 at 10:34; Stop 04/11/21 at 10:35; Status DC Active Scripts Active Reported [no home meds] Allergies Allergies: Coded Allergies: No Known Drug Allergies (Unverified , 04/10/21) ROS Gastrointestinal: Yes Abdominal Pain Physical Exam General: Alert, Oriented X3, Cooperative, mild distress HEENT: Atraumatic, EOMI Lungs: Clear to auscultation, Normal air movement Heart: Regular rate, No murmurs Abdomen: Normal bowel sounds, Soft, Other (Tender to palpation right lower quadrant) Extremities: No edema Skin: No significant lesion Neuro: Normal speech Psych/Mental Status: Mental status NL Vitals VITALS Vital Signs Date Time Temp Pulse Resp B/P (MAP) Pulse Ox O2 Delivery O2 Flow Rate FiO2 04/11/21 10:45 15 96 Room Air 04/11/21 10:23 97.8 67 142/74 97.8 Labs Labs Laboratory Tests Test 04/10/21 20:28 04/10/21 22:25 White Blood Count 7.7 x10^3/uL (4.0-11.0) Red Blood Count 4.70 x10^6/uL (4.30-5.70) Hemoglobin 15.6 g/dL (13.0-17.5) Hematocrit 44.3 % (39.0-53.0) Mean Corpuscular Volume 94 fL (79-100) Mean Corpuscular Hemoglobin 33 pg (25-35) Mean Corpuscular Hemoglobin Concent 35 g/dL (31-37) Red Cell Distribution Width 13.6 % (11.5-14.5) Platelet Count 187 x10^3/uL (140-400) Neutrophils (%) (Auto) 71 % (31-73) Lymphocytes (%) (Auto) 21 % (24-48) Monocytes (%) (Auto) 6 % (0-9) Eosinophils (%) (Auto) 1 % (0-3) Basophils (%) (Auto) 0 % (0-3) Neutrophils # (Auto) 5.5 x10^3/uL (1.8-7.7) Lymphocytes # (Auto) 1.6 x10^3/uL (1.0-4.8) Monocytes # (Auto) 0.5 x10^3/uL (0.0-1.1) Eosinophils # (Auto) 0.1 x10^3/uL (0.0-0.7) Basophils # (Auto) 0.0 x10^3/uL (0.0-0.2) Sodium Level 141 mmol/L (136-145) Potassium Level 4.0 mmol/L (3.5-5.1) Chloride Level 105 mmol/L (98-107) Carbon Dioxide Level 28 mmol/L (21-32) Anion Gap 8 (6-14) Blood Urea Nitrogen 14 mg/dL (8-26) Creatinine 1.1 mg/dL (0.7-1.3) Estimated GFR (Cockcroft-Gault) 76.2 BUN/Creatinine Ratio 13 (6-20) Glucose Level 114 mg/dL (70-99) Calcium Level 9.1 mg/dL (8.5-10.1) Total Bilirubin 0.4 mg/dL (0.2-1.0) Aspartate Amino Transf (AST/SGOT) 23 U/L (15-37) Alanine Aminotransferase (ALT/SGPT) 53 U/L (16-63) Alkaline Phosphatase 61 U/L (46-116) Lactate Dehydrogenase 223 U/L (85-227) Creatine Kinase 238 U/L (39-308) Troponin I Quantitative < 0.017 ng/mL (0.000-0.055) Total Protein 7.6 g/dL (6.4-8.2) Albumin 4.4 g/dL (3.4-5.0) Albumin/Globulin Ratio 1.4 (1.0-1.7) Lipase 58 U/L (73-393) SARS-CoV-2 RNA (ALYSON) Negative (Negative) SARS-CoV-2 Antigen (Rapid) Negative (NEGATIVE) Laboratory Tests Test 04/10/21 20:28 04/10/21 22:25 White Blood Count 7.7 x10^3/uL (4.0-11.0) Red Blood Count 4.70 x10^6/uL (4.30-5.70) Hemoglobin 15.6 g/dL (13.0-17.5) Hematocrit 44.3 % (39.0-53.0) Mean Corpuscular Volume 94 fL (79-100) Mean Corpuscular Hemoglobin 33 pg (25-35) Mean Corpuscular Hemoglobin Concent 35 g/dL (31-37) Red Cell Distribution Width 13.6 % (11.5-14.5) Platelet Count 187 x10^3/uL (140-400) Neutrophils (%) (Auto) 71 % (31-73) Lymphocytes (%) (Auto) 21 % (24-48) Monocytes (%) (Auto) 6 % (0-9) Eosinophils (%) (Auto) 1 % (0-3) Basophils (%) (Auto) 0 % (0-3) Neutrophils # (Auto) 5.5 x10^3/uL (1.8-7.7) Lymphocytes # (Auto) 1.6 x10^3/uL (1.0-4.8) Monocytes # (Auto) 0.5 x10^3/uL (0.0-1.1) Eosinophils # (Auto) 0.1 x10^3/uL (0.0-0.7) Basophils # (Auto) 0.0 x10^3/uL (0.0-0.2) Sodium Level 141 mmol/L (136-145) Potassium Level 4.0 mmol/L (3.5-5.1) Chloride Level 105 mmol/L (98-107) Carbon Dioxide Level 28 mmol/L (21-32) Anion Gap 8 (6-14) Blood Urea Nitrogen 14 mg/dL (8-26) Creatinine 1.1 mg/dL (0.7-1.3) Estimated GFR (Cockcroft-Gault) 76.2 BUN/Creatinine Ratio 13 (6-20) Glucose Level 114 mg/dL (70-99) Calcium Level 9.1 mg/dL (8.5-10.1) Total Bilirubin 0.4 mg/dL (0.2-1.0) Aspartate Amino Transf (AST/SGOT) 23 U/L (15-37) Alanine Aminotransferase (ALT/SGPT) 53 U/L (16-63) Alkaline Phosphatase 61 U/L (46-116) Lactate Dehydrogenase 223 U/L (85-227) Creatine Kinase 238 U/L (39-308) Troponin I Quantitative < 0.017 ng/mL (0.000-0.055) Total Protein 7.6 g/dL (6.4-8.2) Albumin 4.4 g/dL (3.4-5.0) Albumin/Globulin Ratio 1.4 (1.0-1.7) Lipase 58 U/L (73-393) SARS-CoV-2 RNA (ALYSON) Negative (Negative) SARS-CoV-2 Antigen (Rapid) Negative (NEGATIVE) Assessment/Plan Assessment/Plan Acute appendicitis plan laparoscopic appendectomy possible open appendectomy RADHA RODRIGUEZ MD Apr 11, 2021 10:50
[2021-04-11] MEDS ORDERED: BUPIVACAINE-EPI 0.25% 30 ML VIAL KIT. ONE (10:57)
[2021-04-11] MEDS ORDERED: KETOROLAC 30 MG/ML VIAL. ONE (11:04)
[2021-04-11] MEDS ORDERED: ONDANSETRON PF 4 MG/2 ML VIAL. ONE (11:04)
[2021-04-11] MEDS ORDERED: DEXAMETHASONE SOD PHOS 4 MG/ML VIAL ONE (11:04)
--- NOTE | 2021-04-11 11:59 | PDOC4 ---
Operative Note Operative Note Date: April 11, 2021 at 1155 Preoperative diagnosis: Acute appendicitis Postoperative diagnosis: Same Procedure: Laparoscopic appendectomy Surgeon: Surjit Specimen: Appendix Dictation: Patient is 35-year-old male was mated to the hospital with acute appendicitis. Procedure of laparoscopic appendectomy was explained to the patient detail through his family member who speaks Argentine and Croatian. Procedure of laparoscopic appendectomy was explained in detail risk benefits were also discussed including bleeding infection injury to intra-abdominal contents possible necessitating further open operations alternatives to this procedure also discussed with the patient who seemed to understand and gave a verbal written consent had procedure performed. Patient was taken to the operating room placed in supine position general anesthesia was initiated once patient was sleeping intubated his abdomen was prepped and draped usual sterile fashion using ChloraPrep. Area just below the the umbilicus was injected quarter percent Marcaine with epinephrine incision was made 11 blade scalpel and a varies needle was placed within the abdomen creating pneumoperitoneum once this was complete 12 mm port was placed in a 5 mm camera was placed within the abdomen which was inspected no other ab maladies were noted was noted the appendix was inflamed without evidence of rupture. 5 mm port was placed in the midline below the umbilicus and another 5 mm port was placed in the right midabdomen. The appendix was grasped retracted towards the anterior abdominal wall a window was propagated the base of the appendix through the mesoappendix with [place] dissector Endo GAGE stapler was used to staple and transect the base of the appendix a second load was used to staple and transect the mesoappendix. The appendix was then placed in Endo Catch bag and removed the umbilicus right lower quadrant pelvis irrigated and suctioned dry hemostasis deemed be appropriate pneumoperitoneum was reduced all ports were removed the fascial defect at the umbilicus closed with [id number] 0 Vicryl suture and the skin was reapproximated all port sites for subcuticular Monocryl Mastisol Steri-Strips and island dressings were applied. Patient was awakened and extubated in the operating room taken to recovery in stable condition all sponge instrument needle counts listed as correct estimated blood loss 5 mL. RADHA RODRIGUEZ MD Apr 11, 2021 11:59
[2021-04-11] MEDS: oxyCODONE/APAP 5/325 1 TAB TABLET PO PRN ×2 (17:50→22:02)
[2021-04-12 04:48] VITALS: BP 113/48
[2021-04-12] MEDS: PIPERACILLIN/TAZOBACTAM 3.375 GM in IV NORMAL SALINE 50ML 50 ML IV SCH ×2 (06:09→12:37)
[2021-04-12] MEDS: oxyCODONE/APAP 5/325 1 TAB TABLET PO PRN (06:10)
[2021-04-12 07:00] VITALS: BP 113/51
--- NOTE | 2021-04-12 08:43 | PDOC ---
SURGICAL PROGRESS NOTE DATE: 04/12/21 TIME: 08:42 Subjective Patient states he is doing well minimal pain Vital Signs Vital Signs Date Time Temp Pulse Resp B/P (MAP) Pulse Ox O2 Delivery O2 Flow Rate FiO2 04/12/21 07:00 97.7 81 20 113/51 (71) 94 Room Air 97.7 04/11/21 13:21 2 I&O Intake and Output 04/12/21 07:00 Intake Total 1150 ml Output Total 285 ml Balance 865 ml Intake Oral 0 ml IV Total 1150 ml Output Urine Total 275 ml Estimated Blood Loss 10 ml # Voids 2 PATIENT HAS A FIGUEROA: No General: Alert, Oriented X3, Cooperative, mild distress Abdomen: Normal bowel sounds, Soft, Other (Mild incisional tenderness wounds clean dry and intact) Labs Laboratory Tests Test 04/10/21 20:28 04/10/21 22:25 White Blood Count 7.7 x10^3/uL (4.0-11.0) Red Blood Count 4.70 x10^6/uL (4.30-5.70) Hemoglobin 15.6 g/dL (13.0-17.5) Hematocrit 44.3 % (39.0-53.0) Mean Corpuscular Volume 94 fL (79-100) Mean Corpuscular Hemoglobin 33 pg (25-35) Mean Corpuscular Hemoglobin Concent 35 g/dL (31-37) Red Cell Distribution Width 13.6 % (11.5-14.5) Platelet Count 187 x10^3/uL (140-400) Neutrophils (%) (Auto) 71 % (31-73) Lymphocytes (%) (Auto) 21 % (24-48) Monocytes (%) (Auto) 6 % (0-9) Eosinophils (%) (Auto) 1 % (0-3) Basophils (%) (Auto) 0 % (0-3) Neutrophils # (Auto) 5.5 x10^3/uL (1.8-7.7) Lymphocytes # (Auto) 1.6 x10^3/uL (1.0-4.8) Monocytes # (Auto) 0.5 x10^3/uL (0.0-1.1) Eosinophils # (Auto) 0.1 x10^3/uL (0.0-0.7) Basophils # (Auto) 0.0 x10^3/uL (0.0-0.2) Sodium Level 141 mmol/L (136-145) Potassium Level 4.0 mmol/L (3.5-5.1) Chloride Level 105 mmol/L (98-107) Carbon Dioxide Level 28 mmol/L (21-32) Anion Gap 8 (6-14) Blood Urea Nitrogen 14 mg/dL (8-26) Creatinine 1.1 mg/dL (0.7-1.3) Estimated GFR (Cockcroft-Gault) 76.2 BUN/Creatinine Ratio 13 (6-20) Glucose Level 114 mg/dL (70-99) Calcium Level 9.1 mg/dL (8.5-10.1) Total Bilirubin 0.4 mg/dL (0.2-1.0) Aspartate Amino Transf (AST/SGOT) 23 U/L (15-37) Alanine Aminotransferase (ALT/SGPT) 53 U/L (16-63) Alkaline Phosphatase 61 U/L (46-116) Lactate Dehydrogenase 223 U/L (85-227) Creatine Kinase 238 U/L (39-308) Troponin I Quantitative < 0.017 ng/mL (0.000-0.055) Total Protein 7.6 g/dL (6.4-8.2) Albumin 4.4 g/dL (3.4-5.0) Albumin/Globulin Ratio 1.4 (1.0-1.7) Lipase 58 U/L (73-393) SARS-CoV-2 RNA (ALYSON) Negative (Negative) SARS-CoV-2 Antigen (Rapid) Negative (NEGATIVE) Problem List Problems Medical Problems: (1) Appendicitis, acute Status: Acute (2) CAP (community acquired pneumonia) Status: Acute (3) Person under investigation for COVID-19 Status: Acute Assessment/Plan Status post appendectomy afebrile tolerating diet stable to discharge from surgical standpoint Justicifation of Admission Dx: Justifications for Admission: Justification of Admission Dx: N/A RADHA RODRIGUEZ MD Apr 12, 2021 08:43
[2021-04-12 11:07] VITALS: BP 124/62
[2021-04-12] MEDS ORDERED: IBUP-1007 PO (11:24)
[2021-04-12] MEDS ORDERED: IBUPROFEN 400 MG TABLET. PO ONE (11:30)
--- NOTE | 2021-04-12 13:30 | PDOC ---
[facility] PROGRESS NOTE Date of Service DOS: DATE: 04/12/21 TIME: 13:30 Chief Complaint Chief Complaint late entry, 04/11, seen, post surg, doing well Acute appendicitis -given empiric antibiotics and fluids. General surgery: Consulted. NPO. No further testing prior to planned surgery Obesity -counseled on lifestyle modification Smoker -counseled on cessation History of Present Illness History of Present Illness DC in AM Vitals/I&O Vitals/I&O: Vital Signs Date Time Temp Pulse Resp B/P (MAP) Pulse Ox O2 Delivery O2 Flow Rate FiO2 04/12/21 11:07 97.7 76 20 124/62 (82) 97 Room Air 97.7 04/11/21 13:21 2 I & O 04/11/21 04/11/21 04/12/21 15:00 23:00 07:00 Intake Total 1100 ml 0 ml 50 ml Output Total 10 ml 275 ml Balance 1090 ml 0 ml -225 ml Physical Exam General: Alert, Oriented X3, Cooperative, mild distress Heart: Regular rate, No murmurs Abdomen: Normal bowel sounds, Soft, Other (Mild incisional tenderness wounds clean dry and intact) Extremities: No edema Skin: No significant lesion Assessment and Plan Assessmemt and Plan Problems Medical Problems: (1) Appendicitis, acute Status: Acute (2) CAP (community acquired pneumonia) Status: Acute (3) Person under investigation for COVID-19 Status: Acute Comment Review of Relevant I have reviewed the following items stefan (where applicable) has been applied. Medications: Current Medications Medications (Trade) Dose Ordered Sig/Radha Route PRN Reason Start Time Stop Time Status Last Admin Dose Admin Oxycodone/ Acetaminophen (Percocet 5/325) 1 tab PRN Q4HRS PRN PO MODERATE-SEVERE PAIN 04/11/21 16:30 04/12/21 06:10 Ibuprofen (Motrin) 800 mg 1X ONCE PO 04/12/21 11:30 04/12/21 11:31 DC 04/12/21 12:37 Justifications for Admission Other Justification MERNA TIERNEY MD Apr 12, 2021 13:30
--- NOTE | 2021-04-12 13:31 | PDOC3 ---
Discharge Summary Visit Information Date of Admission: Apr 10, 2021 Date of Discharge: Apr 12, 2021 Final Diagnosis Acute appendicitis -given empiric antibiotics and fluids. General surgery: Consulted. NPO. No further testing prior to planned surgery Obesity -counseled on lifestyle modification Smoker -counseled on cessation Problems Medical Problems: (1) Appendicitis, acute Status: Acute (2) CAP (community acquired pneumonia) Status: Acute (3) Person under investigation for COVID-19 Status: Acute Brief Hospital Course Allergies Allergies Coded Allergies Type Severity Reaction Last Updated Verified No Known Drug Allergies 04/10/21 No Vital Signs Vital Signs Date Time Temp Pulse Resp B/P (MAP) Pulse Ox O2 Delivery O2 Flow Rate FiO2 04/12/21 11:07 97.7 76 20 124/62 (82) 97 Room Air 97.7 04/11/21 13:21 2 Lab Results Laboratory Tests Test 04/10/21 20:28 04/10/21 22:25 White Blood Count 7.7 x10^3/uL (4.0-11.0) Red Blood Count 4.70 x10^6/uL (4.30-5.70) Hemoglobin 15.6 g/dL (13.0-17.5) Hematocrit 44.3 % (39.0-53.0) Mean Corpuscular Volume 94 fL (79-100) Mean Corpuscular Hemoglobin 33 pg (25-35) Mean Corpuscular Hemoglobin Concent 35 g/dL (31-37) Red Cell Distribution Width 13.6 % (11.5-14.5) Platelet Count 187 x10^3/uL (140-400) Neutrophils (%) (Auto) 71 % (31-73) Lymphocytes (%) (Auto) 21 % (24-48) Monocytes (%) (Auto) 6 % (0-9) Eosinophils (%) (Auto) 1 % (0-3) Basophils (%) (Auto) 0 % (0-3) Neutrophils # (Auto) 5.5 x10^3/uL (1.8-7.7) Lymphocytes # (Auto) 1.6 x10^3/uL (1.0-4.8) Monocytes # (Auto) 0.5 x10^3/uL (0.0-1.1) Eosinophils # (Auto) 0.1 x10^3/uL (0.0-0.7) Basophils # (Auto) 0.0 x10^3/uL (0.0-0.2) Sodium Level 141 mmol/L (136-145) Potassium Level 4.0 mmol/L (3.5-5.1) Chloride Level 105 mmol/L (98-107) Carbon Dioxide Level 28 mmol/L (21-32) Anion Gap 8 (6-14) Blood Urea Nitrogen 14 mg/dL (8-26) Creatinine 1.1 mg/dL (0.7-1.3) Estimated GFR (Cockcroft-Gault) 76.2 BUN/Creatinine Ratio 13 (6-20) Glucose Level 114 mg/dL (70-99) Calcium Level 9.1 mg/dL (8.5-10.1) Total Bilirubin 0.4 mg/dL (0.2-1.0) Aspartate Amino Transf (AST/SGOT) 23 U/L (15-37) Alanine Aminotransferase (ALT/SGPT) 53 U/L (16-63) Alkaline Phosphatase 61 U/L (46-116) Lactate Dehydrogenase 223 U/L (85-227) Creatine Kinase 238 U/L (39-308) Troponin I Quantitative < 0.017 ng/mL (0.000-0.055) Total Protein 7.6 g/dL (6.4-8.2) Albumin 4.4 g/dL (3.4-5.0) Albumin/Globulin Ratio 1.4 (1.0-1.7) Lipase 58 U/L (73-393) SARS-CoV-2 RNA (ALYSON) Negative (Negative) SARS-CoV-2 Antigen (Rapid) Negative (NEGATIVE) Brief Hospital Course Mr. Pena is a 35 old male admit with new acute abd pain, taken to OR on 04/11 with acute pain, appy taken by Selvin Eddy, went well, Pain OK, dc home Discharge Information Condition at Discharge: Improved Follow Up: Weeks Disposition/Orders: D/C to Home Scheduled PRN Ibuprofen (Ibuprofen) 600 Mg Tablet, 600 MG PO PRN Q6HRS PRN for PAIN, #30 Prescribed by: MERNA TIERNEY on 04/12/21 1124 Miscellaneous Medications [no home meds] , (Reported) Entered as Reported by: Corinne Wright on 6/11/21 0240 Last Action: New Order on 04/11/21239 by Corinne Wright Justicifation of Admission Dx: Justifications for Admission: Justification of Admission Dx: N/A MERNA TIERNEY MD Apr 12, 2021 13:31
--- NOTE | 2021-04-12 14:50 | NUR ---
Discharge Note: [facility] Discharge instructions and discharge home medications reviewed with Patient and a copy given. Toggle Press Folder And Feeder utilized for discharge instructions. All questions have been answered and understanding verbalized. The following instructions and handouts were given: Education given over appendectomy site care and extra supplies given. Discontinued IV line. Patient discharged to Home with Self-care.
--- NOTE | 2021-04-15 18:34 | PATHOLOGY ---
[facility] Accession Number: [id number] . 01 Material submitted: . appendix - APPENDIX AMD CONTENTS . 01 Clinical history: . ACUTE APPENDICITIS LAP APPY APPENDIX AND CONTENT . 02 Diagnosis: Appendix, laparoscopic appendectomy: - Acute appendicitis with serosal exudate. (JPM:james; 04/15/2021) S 04/15/2021 0942 Local . 02 Electronically signed: . Phan Nix MD, Pathologist NPI- [id number] . 01 Gross description: . The specimen is received in formalin, labeled "Pena, Mook", "appendix and contents". Received is an elongated veriform appendix measuring 7.9 cm in length and up to 1.0 cm in diameter. The serosal surface is wrinkled, roughened and pale bauman-pale green. The stapled margin is inked black. Sectioning reveals a slightly dilated lumen with no fecaliths or mass lesions. [employer] Software Developer sections are submitted in cassette A1.(SNA; 04/13/2021) NORMA/RANCHO 04/13/2021 1050 Local . 02 Pathologist provided ICD-10: K35.80 . 02 CPT . 608636 Specimen Comment: A courtesy copy of this report has been sent to [phone] Specimen Comment: [id number], Specimen Comment: Report sent to ,DR WANG / DR ALCAZAR Performed at: 01 [facility] [address], [place] [id number] MD Yasir Medeiros MD Phone: [phone] Performed at: 02 [facility] [id number] MD Phan Nix MD Phone: [phone]
== END 2021-04-12 14:45 | disposition home or self-care (01) | DRG 341 ==
LOC: ER 19:49 → ED HOLD 22:03 → 6 SOUTH 04-11 00:40
PROVIDERS: ADMIT Internal Medicine; ATTEND Internal Medicine
PROC: 0DTJ4ZZ Resection of Appendix, Percutaneous Endoscopic Approach (ICD-10-PCS; principal; 2021-04-11 11:30)
DX: K35.80 Unspecified acute appendicitis (principal); J18.9 Pneumonia, unspecified organism; F17.210 Nicotine dependence, cigarettes, uncomplicated; K38.1 Appendicular concretions; K76.0 Fatty (change of) liver, not elsewhere classified; Z20.822 Contact with and (suspected) exposure to COVID-19; Z83.3 Family history of diabetes mellitus; E66.9 Obesity, unspecified; Z68.32 Body mass index [BMI] 32.0-32.9, adult; Z79.899 Other long term (current) drug therapy; Z71.6 Tobacco abuse counseling
CPT/HCPCS: 36415; 71045; 74177; 80053; 82550; 83615; 83690; 84484; 85025; 87426; 88304; 93005; 96361; 96365; 96366; 96375; A4213; A4364; A4930; A6219; J0696; J1100; J1885; J2405; J2543; J2704; J2765; J3010; J3490; J7030; J7060; J7120; Q9967; U0003; U0005; 99285-25; G0378